=== PATIENT | male | born 1940 | race Caucasian/White ===

== ENCOUNTER 2019-11-09 03:16 | Emergency (ER) | payer MEDICARE, OTHER, SELFPAY ==
[2019-11-09] VITALS (16 sets, daily range): PULSE 115; RESP 20; TEMP 36.3; O2SAT 90–95; BMI 29.8
--- NOTE | 2019-11-09 03:19 | ED_ITS ---
Entered by Sherly Lane, acting as scribe for HPI - Neuro Symptoms/Deficit General: Chief Complaint: Neuro Symptoms/Deficit Stated Complaint: TREMORS Time Seen by Provider: 11/09/19 03:18 Source: patient Mode of arrival: wheelchair Limitations: no limitations History of Present Illness: HPI Narrative: 79 yo m came to the er for tremors. Pt family states that pt has tremors but this last time has gotten worse. Was just in his hands and arms, but now has radiated to pts legs. Onset (ago): unknown Timing confirmed by: family member Associated symptoms: Deny chest pain, headache(s), nausea or vomiting Review of Systems General: Reports: other (negative unless marked) Const: Denies: fever, chills, body aches or change in appetite Eyes: Denies: blurry vision or eye discomfort ENMT: Denies: throat pain or dental pain Card: Denies: chest pain Resp: Denies: shortness of breath GI: Denies: abdominal pain, nausea, vomiting or diarrhea : Denies: painful urination Musc: Denies: neck pain or back pain Skin/Breast: Denies: rash Neuro: Reports: restless legs; Denies: headache Psych: Denies: depression Ghulam/Lymph: Denies: easy bruising All/Imm: Denies: hives PFSH ED PFSH: Statuses (acute, chronic, etc) shown below reflect problem list status as previously entered and may not be historically accurate Social History Smoking and tobacco status: former smoker Physical Exam Const: COMMON NORMALS: no apparent distress, oriented x3 and healthy appearing HENMT: COMMON NORMALS: normocephalic and head/scalp atraumatic HEAD & SCALP: normocephalic and atraumatic Eye: COMMON NORMALS: PERRL and EOMs intact bilaterally PUPIL: Yes PERRL Neck/C-Spine: COMMON NORMALS: full ROM and supple Chest: COMMONS NORMALS: inspection of chest normal and palpation of chest normal Resp: COMMON NORMALS: normal respiratory effort, no retractions, no use of accessory muscles and clear to auscultation bilaterally AUSCULTATION: clear to auscultation bilaterally Cardio: COMMON NORMALS: regular rate, regular rhythm and no murmurs RATE: regular rate RHYTHM: regular rhythm GI: COMMON NORMALS: normal to inspection, nondistended, normoactive bowel sounds, soft to palpation, non-tender and no masses PALPATION: Yes soft Extremity: COMMON NORMALS: normal to inspection and full ROM Neuro: COMMON NORMALS: oriented x3, moves all extremities and no focal motor deficits OTHER: resting tremor in all extremities Psych: COMMON NORMALS: mental status grossly normal, thought process normal and cooperative THOUGHT PROCESS: normal thought process Skin: COMMON NORMALS: no rashes or lesions noted and no wounds GENERAL SKIN EXAM: no rashes or lesions noted Course Vital Signs: Vital signs: Vital Signs Temperature 97.4 F L 11/09/19 03:29 Pulse Rate 115 H 11/09/19 03:29 Respiratory Rate 20 H 11/09/19 03:29 Pulse Oximetry 95 11/09/19 03:29 MDM - Neuro Symptoms/Deficit MDM Narrative: Medical decision making narrative: Patient presents here with tremors. Patient's tremors have resolved after Ativan. Patient's blood work here is normal. Patient is stable for discharge and is to take meds at home as instructed. Patient is to follow-up with primary care doctor in 3 to 5 days and return to the ER if worsening. Lab Data: Labs: Lab Results 11/09/19 11/09/19 Range/Units 03:36 04:06 WBC 13.3 H (4.0-10.0) 10^3/ uL RBC 4.08 L (4.1-5.3) 10^6/u L Hgb 12.6 (11.7-16.6) g/dL Hct 38.6 L (42.0-52.0) % MCV 94.6 H (80-94) fL MCH 30.9 (28.0-34.0) pg MCHC 32.6 (30.0-36.0) g/dL RDW 12.5 (12.1-15.1) % Plt Count 300 (130-400) 10^3/c mm MPV 9.7 (7.4-10.4) fL Neut % (Auto) 82.1 % Lymph % (Auto) 8.4 % [place] % (Auto) 7.5 % Eos % (Auto) 0.7 % Baso % (Auto) 0.8 % Neut # (Auto) 10.9 H (1.8-7.7) 10^3/u L Lymph # (Auto) 1.1 (0.8-4.8) 10^3/u L [place] # (Auto) 1.0 H (0.2-0.9) 10^3/u L Eos # (Auto) 0.1 (0.0-0.8) 10^3/u L Baso # (Auto) 0.1 (0.0-0.1) 10^3/u L Nucleated RBC % (a uto) 0 % Nucleated RBCs # 0.0 /100WBC Sodium 130 L (136-145) mmol/L Potassium 4.1 (3.5-5.1) mmol/L Chloride 93 L (98-107) mmol/L Carbon Dioxide 21 L (22-29) mmol/L Anion Gap 20.1 H (5-19) BUN 15 (8-23) mg/dL Creatinine 1.2 (0.7-1.2) mg/dL Glucose 218 H (65-115) mg/dL Calculated Osmolal ity 273 L (285-295) mOsm/k g Calcium 9.7 (8.5-10.5) mg/dL Discharge Plan Discharge Patient Disposition: Home, Self-Care Clinical Impression: Tremor Condition: Stable Prescriptions: No Action digoxin 250 mcg (0.25 mg) Tablet 250 mcg PO DAILY RF: 0 warfarin 2 mg Tablet 2 mg PO DIRECTED RF: 0 warfarin 5 mg Tablet 5 mg PO DIRECTED RF: 0 lorazepam 0.5 mg tablet 0.5 mg PO DAILY RF: 0 metformin 1,000 mg tablet 1,000 mg PO BID RF: 0 losartan 100 mg tablet 100 mg PO DAILY RF: 0 primidone 50 mg tablet 100 mg PO BEDTIME RF: 0 glyburide 5 mg tablet 5 mg PO DAILY RF: 0 Aspirin Low Dose 81 mg Tablet,Delayed Release (Dr/Ec) 81 mg PO DAILY RF: 0 rosuvastatin 40 mg tablet 40 mg PO DAILY RF: 0 diltiazem HCl 120 mg Tablet Extended Release 24 Hr 120 mg PO DAILY RF: 0 Vitamin C 1,000 mg Tablet 1,000 mg PO DAILY RF: 0 Fish Oil RF: 0 Discharge Orders: Discharge Order (Routine); Ordered 11/09/19 Ordered By: Dayton Collado Referrals: Boogie Barone Jr, MD [Family Provider] - 4-7 days Discharge Diet: Advance as tolerated Discharge Activity: Resume usual activity Activity Restrictions/Additional Instructions: Follow-up with primary care doctor in 2 to 4 days. Return to the ER if worsening. Take meds as instructed Coding Level of Care Code ED Transfer Station Operator for Chg Fwd Exam Problem Focused The documentation recorded by the Domingo coronado Stephanie Lyn, accurately reflects the service I personally performed and the decisions made by me, Dayton Collado MD Nov 09, 2019 03:16
[2019-11-09] MEDS: LORazepam 2 mg/mL INJ 1 mL 1 MG IVP (03:43)
[2019-11-09 03:51] LABS: Basophils # 0.1 10^3/uL (0.0-0.1); Basophils % 0.8 %; Eosinophils # 0.1 10^3/uL (0.0-0.8); Eosinophils % 0.7 %; Hematocrit 38.6 % (42.0-52.0); Hemoglobin 12.6 g/dL (11.7-16.6); Lymphocytes # 1.1 10^3/uL (0.8-4.8); Lymphocytes % 8.4 %; Mean Corpuscular HGB Conc 32.6 g/dL (30.0-36.0); Mean Corpuscular Hemoglobin 30.9 pg (28.0-34.0); Mean Corpuscular Volume 94.6 fL (80-94); Mean Platelet Volume 9.7 fL (7.4-10.4); Monocytes % 7.5 %; Neutrophils # 10.9 10^3/uL (1.8-7.7); Neutrophils % 82.1 %; Nucleated Red Blood Cells % 0 %; Platelet Count 300 10^3/cmm (130-400); Red Blood Count 4.08 10^6/uL (4.1-5.3); Red Cell Distribution Width 12.5 % (12.1-15.1); White Blood Count 13.3 10^3/uL (4.0-10.0)
--- NOTE | 2019-11-09 04:00 | PC.NURSE ---
Introduced self to patient and initiated vital signs. Pt is A&O x 4 and agreeable. Pt states that the reason for the ER visit today is due to uncontrollable shaking in arms and legs which has been progressing over the past year. Reassured patient of needs and will continue to monitor.
[2019-11-09 04:23] LABS: Anion Gap 20.1 (5-19); Blood Urea Nitrogen 15 mg/dL (8-23); Calcium 9.7 mg/dL (8.5-10.5); Carbon Dioxide 21 mmol/L (22-29); Chloride 93 mmol/L (98-107); Glucose 218 mg/dL (65-115); Osmolality Calculated 273 mOsm/kg (285-295); Potassium 4.1 mmol/L (3.5-5.1); Sodium 130 mmol/L (136-145)
== END 2019-11-09 05:15 | disposition home or self-care (01) ==
PROVIDERS: Emergency Provider Emergency Medicine; Family Provider Family Medicine
DX: R25.1 Tremor, unspecified (principal); Z79.01 Long term (current) use of anticoagulants; Z79.82 Long term (current) use of aspirin; Z79.84 Long term (current) use of oral hypoglycemic drugs; Z87.891 Personal history of nicotine dependence
CPT/HCPCS: 80048; 85025; 96374; 99283; J2060

== ENCOUNTER 2019-12-02 19:58 | Emergency (ER) | payer MEDICARE, OTHER, SELFPAY ==
[2019-12-02] VITALS (14 sets, daily range): BP systolic 102; BP diastolic 70; PULSE 64; RESP 13–25; TEMP 36.4; O2SAT 93–97; BMI 30.2
--- NOTE | 2019-12-02 20:45 | W.ED.NEUROSD ---
HPI - Neuro Symptoms/Deficit General: Chief Complaint: Neuro Symptoms/Deficit Stated Complaint: TREMORS Time Seen by Provider: 12/02/19 20:16 Source: patient and family Mode of arrival: wheelchair Limitations: no limitations History of Present Illness: HPI Narrative: Patient is an 79-year-old male who presents to ED today with complaints of a tremor that has been present intermittently for approximately 6 months. Patient has been seen by his PCP Dr. Barone. They have an appointment with neurology in [place] in January. Family states occasionally tremors will get so bad that patient cannot function. He was seen here earlier this month for similar symptoms and given IM Ativan that family states helped his symptoms for weeks. Onset (ago): hour(s) Timing confirmed by: family member History of same: Yes Quality: other (tremor ) Relieving factors: medication Exacerbating factors: none Associated symptoms: Deny chest pain, headache(s), malaise, nausea, syncope or vomiting Review of Systems Const: Denies: fever, chills, body aches, change in appetite, change in weight, fatigue or malaise Card: Denies: chest pain, palpitations, irregular heart rhythm, edema, swelling of feet/ankles, lightheadedness, syncope or pre-syncope Resp: Denies: shortness of breath or chest congestion GI: Denies: abdominal pain, nausea or vomiting Musc: Denies: neck pain, back pain, extremity pain, extremity swelling, joint pain or joint swelling Skin/Breast: Denies: rash Neuro: Reports: other (tremor ); Denies: headache, numbness in extremities, weakness in extremities or changes in sensation [facility] ED PFSH: Social History Smoking and tobacco status: former smoker Physical Exam Const: COMMON NORMALS: no apparent distress, average body habitus, oriented x3, no limitations, healthy appearing, alert and well nourished Resp: COMMON NORMALS: normal respiratory effort and clear to auscultation bilaterally AUSCULTATION: clear to auscultation bilaterally Cardio: COMMON NORMALS: regular rate and regular rhythm RATE: regular rate RHYTHM: regular rhythm Extremity: OTHER: spasticity and tremors noted to bilateral upper extremities Neuro: COMMON NORMALS: oriented x3, moves all extremities and no sensory deficits noted SENSORIUM/ORIENTATION: Yes alert Skin: COMMON NORMALS: no rashes or lesions noted GENERAL SKIN EXAM: no rashes or lesions noted Course Vital Signs: Vital signs: Vital Signs Temperature 97.6 F 12/02/19 20:00 Pulse Rate 97 12/03/19 00:02 Respiratory Rate 18 12/03/19 00:02 Blood Pressure 135/83 12/03/19 00:02 Pulse Oximetry 96 12/03/19 00:02 MDM - Neuro Symptoms/Deficit MDM Narrative: Medical decision making narrative: Patient feels much improved after lorazepam and cogentin. We will have case management try to get him a sooner neurology appointment at [facility] or [facility] in [place]. Patient is not wanting to follow-up with neurology here at [facility]. I will switch patient's losartan to propranolol to hopefully help with the tremors. He will be given a prescription for the benztropine that he can use if symptoms become severe in hopes that this may save him from an emergency department visit. Patient did not have any labs or imaging performed today as I do not feel this is necessary as patient has had these symptoms intermittently now for 6 months and has been worked up as an outpatient. Return to ED precautions given. Discharge Plan Discharge Patient Disposition: Home, Self-Care Clinical Impression: Tremor Condition: Stable Prescriptions: New propranolol 40 mg tablet 40 mg PO BID Qty: 60 RF: 0 benztropine 1 mg tablet 1 mg PO BID Qty: 10 RF: 0 No Action rosuvastatin 40 mg tablet 40 mg PO DAILY 90 Days Qty: 90 RF: 3 digoxin 250 mcg (0.25 mg) Tablet 250 mcg PO DAILY RF: 0 warfarin 2 mg Tablet 2 mg PO DIRECTED RF: 0 warfarin 5 mg Tablet 5 mg PO DIRECTED RF: 0 lorazepam 0.5 mg tablet 0.5 mg PO DAILY RF: 0 metformin 1,000 mg tablet 1,000 mg PO BID RF: 0 losartan 100 mg tablet 100 mg PO DAILY RF: 0 primidone 50 mg tablet 100 mg PO BEDTIME RF: 0 glyburide 5 mg tablet 5 mg PO DAILY RF: 0 Aspirin Low Dose 81 mg Tablet,Delayed Release (Dr/Ec) 81 mg PO DAILY RF: 0 diltiazem HCl 120 mg Tablet Extended Release 24 Hr 120 mg PO DAILY RF: 0 Vitamin C 1,000 mg Tablet 1,000 mg PO DAILY RF: 0 Fish Oil RF: 0 Discharge Orders: Discharge Order (Routine); Ordered 12/02/19 Ordered By: Yuridia Lizarraga Referrals: Boogie Barone Jr, MD [Family Provider] - Discharge Diet: Usual diet Discharge Activity: Resume usual activity Activity Restrictions/Additional Instructions: As discussed discontinue your losartan blood pressure medication and we will start you on propranolol in hopes that this will help with your tremors. I have also given you a prescription for the generic Cogentin which is 1 of the medications you received here in the emergency department. He may take this up to 2 times a day for severe tremors/spasms. We will have case management try to get him a sooner neurology appointment. Please follow-up with Dr. Meneses's office as soon as possible. Discharge Date/Time: 12/03/19 00:09 Coding Level of Care Code ED Cdl Service Technician for Beatriz Ponce Exam Detailed
[2019-12-02] MEDS: LORazepam 2 mg/mL INJ 1 mL 1 MG IM ×2 (20:57→21:42)
[2019-12-02] MEDS: benztropine 1 mg/mL SDV 2 mL IM (22:36)
[2019-12-02] MEDS: sodium chloride 0.9% 1,000 ML 999 ML IV (22:46)
--- NOTE | 2019-12-02 23:01 | PC.NURSE ---
Introduced self to patient and initiated vital signs. Patient presents A&O x 4. NAD, ABCs intact and agreeable to treatment. Respirations are even and unlabored. Pt states that the chief complaint for the ER visit today is due to tremors. IV observed in left AC and infusing fluids. Pt denies any vision disturbances or lightheadedness. Bed left in lowest position in semi-fowlers with side rails up.Reassured patient of needs and will continue to monitor.
[2019-12-03] VITALS: O2SAT 97
[2019-12-03 00:02] VITALS: BP 135/83; PULSE 97; RESP 18; O2SAT 96
--- NOTE | 2019-12-03 09:18 | DCPLANNER ---
construction site manager had message to call [facility] to ask about patients appointment being moved up any sooner than in January. construction site manager called the clinic, was asked to fax records to be reviewed. construction site manager faxed records to the clinic, called patient to inform patient of this. construction site manager was unable to speak with patient at this time, a voicemail was left for patient to return comp field case manager phone call.
--- NOTE | 2019-12-04 10:34 | DCPLANNER ---
Patients called embedded case manager due to missed a phone call. business improvement manager explained to patients , that embedded case manager called to make the referral, and faxed patients records to the clinic. The clinic is reviewing patients records to see if patient can be seen any sooner.
--- NOTE | 2019-12-12 13:16 | DCPLANNER ---
Addendum entered by Elizabet Cabrera 03/28/20 08:31: account manager employee benefits called [facility] to confirm that patient did attend appointment, rn case mgr was told that the appointment had been rescheduled for 02.19.20 and that appointment had been cancelled. Original Note: Patient has a follow up appointment scheduled for , January. account manager employee benefits was told that patient is aware of appointment.
== END 2019-12-03 00:09 | disposition home or self-care (01) ==
PROVIDERS: Emergency Provider Physician Assistant; Family Provider Family Medicine
DX: R25.1 Tremor, unspecified (principal); Z87.891 Personal history of nicotine dependence
CPT/HCPCS: 96372; 99283; J0515; J2060; J7030

== ENCOUNTER 2019-12-17 12:24 | Emergency (ER) | payer MEDICARE, OTHER, SELFPAY ==
[2019-12-17 12:32] VITALS: PULSE 57; RESP 18; TEMP 36.6; O2SAT 95; BMI 31.4
--- NOTE | 2019-12-17 12:42 | PC.NURSE ---
Unable to obtain BP due to continual tremors in both arms and hands.
--- NOTE | 2019-12-17 12:43 | ED_ITS ---
Entered by Steph Phillips, acting as scribe for Dayton Collado MD Dec 17, 2019 12:24 HPI - General Adult General: Chief complaint: General Medical Stated complaint: Tremors Time Seen by Provider: 12/17/19 12:28 [facility] ED PFSH: Social History Smoking and tobacco status: former smoker Course Vital Signs: Vital signs: Vital Signs Temperature 97.9 F 12/17/19 12:32 Pulse Rate 57 L 12/17/19 12:32 Respiratory Rate 18 12/17/19 12:32 Pulse Oximetry 95 12/17/19 12:32 Discharge Plan Discharge Condition: Stable Prescriptions: No Action rosuvastatin 40 mg tablet 40 mg PO DAILY 90 Days Qty: 90 RF: 3 digoxin 250 mcg (0.25 mg) Tablet 250 mcg PO DAILY RF: 0 warfarin 2 mg Tablet 2 mg PO DIRECTED RF: 0 warfarin 5 mg Tablet 5 mg PO DIRECTED RF: 0 lorazepam 0.5 mg tablet 0.5 mg PO DAILY RF: 0 metformin 1,000 mg tablet 1,000 mg PO BID RF: 0 losartan 100 mg tablet 100 mg PO DAILY RF: 0 primidone 50 mg tablet 100 mg PO BEDTIME RF: 0 glyburide 5 mg tablet 5 mg PO DAILY RF: 0 Aspirin Low Dose 81 mg Tablet,Delayed Release (Dr/Ec) 81 mg PO DAILY RF: 0 diltiazem HCl 120 mg Tablet Extended Release 24 Hr 120 mg PO DAILY RF: 0 Vitamin C 1,000 mg Tablet 1,000 mg PO DAILY RF: 0 Fish Oil RF: 0 propranolol 40 mg tablet 40 mg PO BID Qty: 60 RF: 0 benztropine 1 mg tablet 1 mg PO BID Qty: 10 RF: 0 Coding Level of Care Code ED Neon Sign Installer for Beatriz Ponce
--- NOTE | 2019-12-17 13:02 | PC.NURSE ---
Patient to treatment room 15
--- NOTE | 2019-12-17 13:13 | ED_ITS ---
Entered by Steph Phillips, acting as scribe for Dayton Collado MD Dec 17, 2019 12:24 HPI - General Adult General: Chief complaint: General Medical Stated complaint: Tremors Time Seen by Provider: 12/17/19 12:28 Source: patient Mode of arrival: ambulatory Limitations: no limitations History of Present Illness: HPI narrative: 79-year-old male that has had a tr emor for over a year that is just a resting essential tremor. Patient states today he is shaky and had difficulty walking or sleeping. Ativan has helped him in the past. He denies any headache. He denies any specific weaknesses. complaint: tremors Onset (ago): year(s) Radiation: non-radiation Severity: mild and moderate Pain Consistency: constant Relieving factors: medication Exacerbating factors: none Associated symptoms: Deny chest pain, dyspnea, headache(s), nausea, rash or vomiting Treatments prior to arrival: none Review of Systems Const: Denies: fever, chills, body aches or change in appetite Eyes: Denies: blurry vision or eye discomfort ENMT: Denies: throat pain or dental pain Card: Denies: chest pain Resp: Denies: shortness of breath GI: Denies: abdominal pain, nausea, vomiting or diarrhea : Denies: painful urination Musc: Denies: neck pain or back pain Skin/Breast: Denies: rash Neuro: Denies: headache Psych: Denies: depression Ghulam/Lymph: Denies: easy bruising All/Imm: Denies: hives PFSH ED PFSH: Social History Smoking and tobacco status: former smoker Physical Exam Const: COMMON NORMALS: no apparent distress, oriented x3 and healthy appearing HENMT: COMMON NORMALS: normocephalic and head/scalp atraumatic HEAD & SCALP: normocephalic and atraumatic Eye: COMMON NORMALS: PERRL and EOMs intact bilaterally PUPIL: Yes PERRL Neck/C-Spine: COMMON NORMALS: full ROM and supple Chest: COMMONS NORMALS: inspection of chest normal and palpation of chest normal Resp: COMMON NORMALS: normal respiratory effort, no retractions, no use of accessory muscles and clear to auscultation bilaterally AUSCULTATION: clear to auscultation bilaterally Cardio: COMMON NORMALS: regular rate, regular rhythm and no murmurs RATE: regular rate RHYTHM: regular rhythm GI: COMMON NORMALS: normal to inspection, nondistended, normoactive bowel sounds, soft to palpation, non-tender and no masses PALPATION: Yes soft Extremity: COMMON NORMALS: normal to inspection and full ROM Neuro: COMMON NORMALS: oriented x3, moves all extremities and no focal motor deficits Psych: COMMON NORMALS: mental status grossly normal, thought process normal and cooperative THOUGHT PROCESS: normal thought process Skin: COMMON NORMALS: no rashes or lesions noted and no wounds GENERAL SKIN EXAM: no rashes or lesions noted Course Vital Signs: Vital signs: Vital Signs Temperature 97.9 F 12/17/19 12:32 Pulse Rate 78 12/17/19 14:10 Respiratory Rate 15 12/17/19 14:10 Blood Pressure 128/77 12/17/19 14:10 Pulse Oximetry 98 12/17/19 14:10 MDM - General Adult MDM Narrative: Medical decision making narrative: Patient presents here with tremor that is an essential tremor. He has follow-up with [facility] in a month. Patient feels much improved here after Ativan and is stable for discharge at this time. Discharge Plan Discharge Patient Disposition: Home, Self-Care Clinical Impression: Tremor Condition: Stable Prescriptions: No Action rosuvastatin 40 mg tablet 40 mg PO DAILY 90 Days Qty: 90 RF: 3 digoxin 250 mcg (0.25 mg) Tablet 250 mcg PO DAILY RF: 0 warfarin 5 mg Tablet 5 mg PO DIRECTED RF: 0 lorazepam 0.5 mg tablet 0.5 mg PO DAILY RF: 0 metformin 1,000 mg tablet 1,000 mg PO BID RF: 0 losartan 100 mg tablet 100 mg PO DAILY RF: 0 primidone 50 mg tablet 100 mg PO BEDTIME RF: 0 glyburide 5 mg tablet 5 mg PO DAILY RF: 0 aspirin [Aspirin Low Dose] 81 mg Tablet,Delayed Release (Dr/Ec) 81 mg PO DAILY RF: 0 diltiazem HCl 120 mg Tablet Extended Release 24 Hr 120 mg PO DAILY RF: 0 ascorbic acid (vitamin C) [Vitamin C] 1,000 mg Tablet 1,000 mg PO DAILY RF: 0 Fish Oil 1 tab PO DAILY RF: 0 propranolol 40 mg tablet 40 mg PO BID Qty: 60 RF: 0 benztropine 1 mg tablet 1 mg PO BID Qty: 10 RF: 0 tamsulosin 0.4 mg Capsule 0.4 mg PO DAILY RF: 0 metoprolol succinate 25 mg Tablet Extended Release 24 Hr 25 mg PO DAILY RF: 0 finasteride 5 mg Tablet 5 mg PO DAILY RF: 0 Discharge Orders: Discharge Order (Routine); Ordered 12/17/19 Ordered By: Dayton Collado Referrals: Boogie Barone Jr, MD [Family Provider] - Discharge Diet: Advance as tolerated Discharge Activity: Resume usual activity Discharge Date/Time: 12/17/19 14:12 Coding Level of Care Code ED Heat And Frost Insulator Helper for Chg Fwd Exam Comprehensive The documentation recorded by the Alan coronado Bridget Annette, accurately reflects the service I personally performed and the decisions made by Tobias friend Korby, MD Dec 17, 2019 12:24
[2019-12-17] MEDS: LORazepam 2 mg/mL INJ 1 mL 1 MG IVP (13:23)
[2019-12-17 14:10] VITALS: BP 128/77; PULSE 78; RESP 15; O2SAT 98
== END 2019-12-17 14:12 | disposition home or self-care (01) ==
PROVIDERS: Emergency Provider Emergency Medicine; Family Provider Family Medicine
DX: G25.0 Essential tremor (principal); Z87.891 Personal history of nicotine dependence
CPT/HCPCS: 12345; 96374; 96375; 99282; 99283; J2060

== ENCOUNTER 2019-12-30 09:28 | Emergency (ER) | payer MEDICARE, OTHER, SELFPAY ==
[2019-12-30 09:29] VITALS: BP 135/87; PULSE 63; RESP 18; TEMP 36.7; O2SAT 97; BMI 30.2
[2019-12-30 09:46] VITALS: BP 137/85; RESP 16; O2SAT 96
--- NOTE | 2019-12-30 09:55 | ED_ITS ---
HPI - General Adult General: Chief complaint: General Medical Stated complaint: INCREASED TREMORS Time Seen by Provider: 12/30/19 09:38 History of Present Illness: HPI narrative: 79-year-old male presents emergency room with complaint of tremor. He has been in the emergency room a couple of times for this reviewed the previous notes he had previously been started on propranolol he is also has on his list of medications metoprolol digoxin and warfarin. He is also taking Cogentin. States that with tremors little worse this morning he tells me he has been seen by neurology in 1 of the previous notes refers to a upcoming appointment in [place] although beyond tremor he cannot name diagnosis that he has been told her that he is aware of. He does say he was to be placed in a senior living soon but does not know the name of it. Onset (ago): month(s) Location: upper extremity Severity: severe Relieving factors: none Exacerbating factors: none Associated symptoms: Deny chest pain, dyspnea, malaise, nausea or vomiting Review of Systems Const: Denies: fever, chills, body aches, change in appetite, fatigue or malaise ENMT: Denies: throat pain, ear pain, nasal discharge or nasal congestion Card: Denies: chest pain, edema, shortness of breath on exertion or shortness of breath when lying down Resp: Denies: shortness of breath, productive cough or non-productive cough GI: Denies: abdominal pain, nausea, vomiting, vomiting blood, coffee grounds in vomit, diarrhea, constipation, bloating, blood in stool or black tarry stool : Denies: flank pain, painful urination, urinary frequency or urinary urgency [facility] [place] [facility] PFSH: Social History Smoking and tobacco status: former smoker Physical Exam Const: GENERAL APPEARANCE: cooperative ORIENTATION/CONSCIOUSNESS: Yes awake, Yes oriented to person, Yes oriented to place and Yes oriented to time HENMT: COMMON NORMALS: normocephalic, head/scalp atraumatic, hearing grossly normal bilaterally, external ears normal, EAC's normal, TM's normal bilaterally, nasal mucous membranes and turbinates normal, moist oral mucous membranes and oropharynx normal HEAD & SCALP: normocephalic and atraumatic NOSE: nasal mucous membranes and turbinates normal EXTERNAL EAR: Yes external ears normal EXTERNAL AUDITORY CANAL: EAC's normal TYMPANIC MEMBRANE: TM's normal bilaterally Eye: COMMON NORMALS: PERRL, EOMs intact bilaterally, conjunctivae normal and no scleral icterus CONJUNCTIVA: Yes conjunctivae normal PUPIL: Yes PERRL Neck/C-Spine: COMMON NORMALS: full ROM, no lymphadenopathy, supple and no JVD Lymph: LYMPHATIC: no lymphadenopathy noted and no lymphedema noted Resp: COMMON NORMALS: normal respiratory effort, no retractions, no use of accessory muscles and clear to auscultation bilaterally AUSCULTATION: clear to auscultation bilaterally Cardio: COMMON NORMALS: no JVD, regular rate, regular rhythm and no murmurs RATE: regular rate RHYTHM: regular rhythm GI: COMMON NORMALS: soft to palpation and no hepatosplenomegaly AUSCULTATION: Yes normoactive bowel sounds PALPATION: Yes soft, No tender, No guarding and Yes no hepatosplenomegaly Extremity: COMMON NORMALS: normal to inspection, normal capillary refill, no clubbing, cyanosis or edema, no calf tenderness and no pedal edema Neuro: SENSORIUM/ORIENTATION: Yes oriented to person, Yes oriented to place and Yes oriented to time Course Vital Signs: Vital signs: Vital Signs Temperature 98.0 F 12/30/19 09:29 Pulse Rate 88 12/30/19 10:51 Respiratory Rate 16 12/30/19 10:51 Blood Pressure 135/68 12/30/19 10:51 Pulse Oximetry 95 12/30/19 10:51 MDM - General Adult MDM Narrative: Medical decision making narrative: Has been seen by neurology previously not really somewhat much more we can do for him here he probably needs to continue to see neurology or even see a tertiary care facilities movement disorder clinic or something along the lines. Make the best thing we can do for him here is bumped up his clonazepam he is already on 2 beta-blockers does not seem to help very much increase his clonazepam to 3 times daily follow- up with primary care back as soon as possible Lab Data: Labs: Lab Results 12/30/19 12/30/19 12/30/19 Range/Units 10:05 10:05 10:05 WBC 10.3 H (4.0-10.0) 10^3/ uL RBC 3.87 L (4.1-5.3) 10^6/u L Hgb 11.7 (11.7-16.6) g/dL Hct 38.1 L (42.0-52.0) % MCV 98.4 H (80-94) fL MCH 30.2 (28.0-34.0) pg MCHC 30.7 (30.0-36.0) g/dL RDW 13.2 (12.1-15.1) % Plt Count 296 (130-400) 10^3/c mm MPV 9.8 (7.4-10.4) fL Neut % (Auto) 76.2 % Lymph % (Auto) 10.6 % [place] % (Auto) 9.0 % Eos % (Auto) 2.8 % Baso % (Auto) 1.1 % Neut # (Auto) 7.8 H (1.8-7.7) 10^3/u L Lymph # (Auto) 1.1 (0.8-4.8) 10^3/u L [place] # (Auto) 0.9 (0.2-0.9) 10^3/u L Eos # (Auto) 0.3 (0.0-0.8) 10^3/u L Baso # (Auto) 0.1 (0.0-0.1) 10^3/u L Nucleated RBC % (a uto) 0 % Nucleated RBCs # 0.0 /100WBC PT 19.40 H (10.5-13.3) SECO NDS INR 1.58 H (0.8-1.2) Sodium 140 (136-145) mmol/L Potassium 5.0 (3.5-5.1) mmol/L Chloride 101 (98-107) mmol/L Carbon Dioxide 26 (22-29) mmol/L Anion Gap 18.0 (5-19) BUN 15 (8-23) mg/dL Creatinine 1.0 (0.7-1.2) mg/dL Glucose 194 H (65-115) mg/dL Calculated Osmolal ity 292 (285-295) mOsm/k g Calcium 10.0 (8.5-10.5) mg/dL Digoxin 1.8 H (0.6-1.2) ng/mL Discharge Plan Discharge Patient Disposition: Home, Self-Care Condition: Stable Prescriptions: Changed clonazepam 0.5 mg tablet 0.5 mg PO TID Qty: 0 RF: 0 Held digoxin 250 mcg (0.25 mg) Tablet 250 mcg PO DAILY RF: 0 Hold Instructions: Resume on 01/06/20. Follow-up with your doctor in 2 to 3 days to have your digoxin level rechecked No Action rosuvastatin 40 mg tablet 40 mg PO DAILY 90 Days Qty: 90 RF: 3 warfarin 5 mg Tablet 5 mg PO DIRECTED RF: 0 metformin 1,000 mg tablet 1,000 mg PO BID RF: 0 losartan 100 mg tablet 100 mg PO DAILY RF: 0 primidone 50 mg tablet 100 mg PO BEDTIME RF: 0 glyburide 5 mg tablet 5 mg PO DAILY RF: 0 aspirin [Aspirin Low Dose] 81 mg Tablet,Delayed Release (Dr/Ec) 81 mg PO DAILY RF: 0 ascorbic acid (vitamin C) [Vitamin C] 1,000 mg Tablet 1,000 mg PO DAILY RF: 0 Fish Oil 1 tab PO DAILY RF: 0 propranolol 40 mg tablet 40 mg PO BID Qty: 60 RF: 0 benztropine 1 mg tablet 1 mg PO BID Qty: 10 RF: 0 tamsulosin 0.4 mg Capsule 0.4 mg PO DAILY RF: 0 metoprolol succinate 25 mg Tablet Extended Release 24 Hr 25 mg PO DAILY RF: 0 finasteride 5 mg Tablet 5 mg PO DAILY RF: 0 Discharge Orders: Discharge Order (Routine); Ordered 12/30/19 Ordered By: Lukas Mtz Referrals: Boogie Barone Jr, MD [Family Provider] - Activity Restrictions/Additional Instructions: Follow-up with your doctor in the office in 2 to 3 days to recheck a digoxin level. Hold her digoxin until then. Increase her clonazepam to 3 times daily Discharge Date/Time: 12/30/19 11:38 Coding Level of Care Code ED Special Procedure Tech for Beatriz Fwd Exam Comprehensive
[2019-12-30] MEDS: LORazepam 2 mg/mL INJ 1 mL IVP (10:08)
[2019-12-30 10:13] LABS: Basophils # 0.1 10^3/uL (0.0-0.1); Basophils % 1.1 %; Eosinophils # 0.3 10^3/uL (0.0-0.8); Eosinophils % 2.8 %; Hematocrit 38.1 % (42.0-52.0); Hemoglobin 11.7 g/dL (11.7-16.6); Lymphocytes # 1.1 10^3/uL (0.8-4.8); Lymphocytes % 10.6 %; Mean Corpuscular HGB Conc 30.7 g/dL (30.0-36.0); Mean Corpuscular Hemoglobin 30.2 pg (28.0-34.0); Mean Corpuscular Volume 98.4 fL (80-94); Mean Platelet Volume 9.8 fL (7.4-10.4); Monocytes # 0.9 10^3/uL (0.2-0.9); Neutrophils # 7.8 10^3/uL (1.8-7.7); Neutrophils % 76.2 %; Nucleated Red Blood Cells % 0 %; Platelet Count 296 10^3/cmm (130-400); Red Blood Count 3.87 10^6/uL (4.1-5.3); Red Cell Distribution Width 13.2 % (12.1-15.1); White Blood Count 10.3 10^3/uL (4.0-10.0)
[2019-12-30 10:25] LABS: INR 1.58 (0.8-1.2)
[2019-12-30 10:34] LABS: Blood Urea Nitrogen 15 mg/dL (8-23); Carbon Dioxide 26 mmol/L (22-29); Chloride 101 mmol/L (98-107); Digoxin 1.8 ng/mL (0.6-1.2); Glucose 194 mg/dL (65-115); Osmolality Calculated 292 mOsm/kg (285-295); Sodium 140 mmol/L (136-145)
[2019-12-30 10:51] VITALS: BP 135/68; PULSE 88; RESP 16; O2SAT 95
== END 2019-12-30 11:38 | disposition home or self-care (01) ==
PROVIDERS: Emergency Provider Family Medicine; Family Provider Family Medicine
DX: R25.1 Tremor, unspecified (principal); Z79.01 Long term (current) use of anticoagulants; Z87.891 Personal history of nicotine dependence
CPT/HCPCS: 12345; 36415; 80048; 80162; 85025; 85610; 96374; 96375; 99282; 99283; J2060

== ENCOUNTER 2020-03-02 19:48 | Outpatient (CLI) | payer OTHER, SELFPAY ==
[2020-03-02 21:12] LABS: Add Urine Microscopic? YES; Bilirubin Urine Neg (NEGATIVE); Blood Urine 3+ (Negative); Glucose Urine UA 4+ (Normal); Ketones Urine 1+ (Negative); Leukocyte Esterase Urine 2+ (Negative); Nitrate Urine Negative (Negative); Protein Urine 1+ (Negative); Specific Gravity, Urine 1.015 (1.005-1.030); Urine Appearance Cloudy (CLEAR); Urine Color Yellow (Yellow); Urobilinogen Urine Norm (Negative); pH Urine 5 (5-7)
[2020-03-02 21:27] LABS: RBC Urine 15-25 /hpf (0-2)
[2020-03-02 21:28] LABS: Bacteria Urine 1+; Squamous Epithelial Cell Urine 0-4 (0-5); WBC Urine TOO NUMEROUS TO CNT /hpf (0-5)
[2020-03-02 21:29] LABS: Add Urine Culture? Yes
== END 2020-03-02 19:49 | disposition home or self-care (01) ==
LOC: LAB 19:50
PROVIDERS: Family Provider Family Medicine; Visit Provider Internal Medicine
DX: R41.82 Altered mental status, unspecified (principal); R30.0 Dysuria
CPT/HCPCS: 81001